=== PATIENT | male | born 1945 | race Caucasian/White ===

== ENCOUNTER → 2023-11-26 13:28 | Outpatient (REF) | payer OTHER, SELFPAY | LOC: MRI 13:28 | PROVIDERS: ATTENDING PHYSICIAN Psychiatry & Neurology Behavioral Neurology & Neuropsychiatry; FAMILY PHYSICIAN Family Medicine | DX: G31.84 Mild cognitive impairment of uncertain or unknown etiology (principal) | CPT/HCPCS: 70551 ==